=== PATIENT | female | born 1985 | race African-American/Black ===

== ENCOUNTER 2016-09-11 16:15 | Emergency (ER) | payer MEDICAID ==
--- NOTE | ~2016-09-11 | EKG ---
PATIENT: JOLIE ADAM UNIT #: [id number] Ventricular Rate: 100 BPM Atrial Rate: 100 BPM P-R Interval: 130 ms QRS Duration: 74 ms Q-T Interval: 340 ms QTC Calculation(Bezet): 438 ms P [place]: 72 degrees Calculated R [place]: 55 degrees Calculated T [place]: 34 degrees Diagnosis Line: Sinus rhythm with sinus arrhytmia Diagnosis Line: Otherwise normal ECG Diagnosis Line: No previous ECGs available Diagnosis Line: Confirmed by JORI PORTILLO MD ([id number]) on Diagnosis Line: 10/25/2016 7:01:17 AM INTERPRETING MD: FELI
--- NOTE | ~2016-09-11 | CR72 ---
[facility] A Service of [facility] & [facility] RADIOLOGY TEXT RESULTS PATIENT: JOLIE ADAM LOCATION: SED : 89 UNIT #: [id number] AGE: [address]: Ramon Vela MD SEX: F ORDER DR: [id number] [address] [address] [id number] E MR#: [id number] Acc #: [id number] NAME: JOLIE ADAM : 1985 SEX: F STUDY DATE/TIME: 09/11/2016 16:46 UNIT: SED ROOM: STUDY DESCRIPTION: CR Chest Single View Portable Attending Physician: Ramon Vela M.D. Ordering Physician: Ramon [id number] Yulia Vela Primary Care Physician: Primary Care Physician No MEDICAL IMAGING REPORT This report is preliminary unless electronic signature is present. EXAM AP portable chest 09/11/2016 16:46 HISTORY Chest pain since this morning. Left arm numbness for 2 days. Face numbness. COMPARISON AP portable chest 02/16/2013. FINDINGS A single AP portable view of the chest shows both lungs to be clear. The heart is normal in size. The mediastinal contour is normal. No significant bone abnormalities are seen. IMPRESSION Normal portable chest. Dictated by... Hui Burleson M.D. THIS IS AN ELECTRONICALLY VERIFIED REPORT Hui Burleson M.D. at 09/12/2016 10:00 AM GATITO/aleyda TD: 09/12/2016 06:41 JOB #: [id number] MEDICAL IMAGING REPORT
[2016-09-11 16:05] LABS: EOSINOPHIL# 0.1 X10e3 (0-0.7); EOSINOPHIL% 2.7 % (0.0-7.0); HEMATOCRIT 32.7 % (35.0-45.0); HEMOGLOBIN 10.3 gm/dL (12.0-16.0); LYMPHOCYTE# 1.8 X10e3 (1.0-3.5); LYMPHOCYTE% 35.4 % (17.0-45.0); MEAN CELL VOLUME 68.4 FL (83-96); MEAN CORPUSCULAR HEMOGLOBIN 21.6 PG (28-34); MEAN CORPUSCULAR HGB CONC 31.5 g/dL (30-36); MEAN PLATELET VOLUME 8.2 FL (6.5-11.5); MONOCYTE# 0.4 X10e3 (0-1.0); MONOCYTE% 7.3 % (3.0-12.0); NEUTROPHIL# 2.7 X10e3 (1.5-7.1); NEUTROPHIL% 53.6 % (40-75); PLATELET COUNT 239 X10e3 (140-420); RED BLOOD COUNT 4.77 X10e (3.90-5.30); RED CELL DISTRIBUTION WIDTH 19.6 % (11.0-15.5); WHITE BLOOD COUNT 5.1 X10e3 (4.0-10.5)
[2016-09-11 16:15] LABS: DIFF IND NO
[~2016-09-11 16:15] MED LIST: SLEEPING PILL
[2016-09-11 16:20] LABS: POC - CKMB <1.0 ng/mL (0.0-7.9); POC - MYOGLOBIN 65.4 ng/mL (0.0-169.0); POC - TROPONIN <0.05 ng/mL (<=0.05)
[2016-09-11 16:26] LABS: INR 1.1; PROTHROMBIN TIME (PATIENT) 12.7 SECONDS (9.5-12.4)
[2016-09-11 16:28] LABS: ALBUMIN SERUM 4.3 g/dL (3.5-5.0); ALKALINE PHOSPHATASE 57 U/L (32-92); ALT (SGPT) 12 U/L (10-40); AST (SGOT) 26 U/L (10-42); BILIRUBIN, DIRECT 0.1 mg/dL (0.0-0.2); BILIRUBIN,INDIRECT 0.8 mg/dL (0.0-0.9); BILIRUBIN,TOTAL 0.9 mg/dL (0.2-2.0); BLOOD UREA NITROGEN 10 mg/dL (9-23); CARBON DIOXIDE 25 mmol/L (22-31); CHLORIDE 104 mmol/L (100-111); CREATININE SERUM 0.5 mg/dL (0.6-1.4); GLOM FILT RATE Estimated ABOVE60 mL/min (>60); GLUCOSE FASTING 95 mg/dL (70-110); POTASSIUM 3.3 mmol/L (3.5-5.1); PROTEIN TOTAL SERUM 8.2 g/dL (6.0-8.3); SODIUM 138 mmol/L (135-145)
[2016-09-11 16:33] LABS: PARTIAL THROMBOPLASTIN TIME 25.7 SECONDS (25.6-38.1)
== END 2016-09-11 17:53 | disposition home or self-care (01) ==
LOC: SED 16:15
PROVIDERS: Emergency Medicine
DX: R07.9 Chest pain, unspecified (principal)
CPT/HCPCS: 36415; 71010; 80048; 80076; 82553; 83874; 84484; 84703; 85025; 85379; 85610; 85730; 93005; 99284